=== PATIENT | male | born 1990 | race Caucasian/White ===

== ENCOUNTER 2017-09-22 20:55 | Emergency (ER) | payer SELFPAY ==
[~2017-09-22 20:55] MED LIST: ACET500T68 PO; AZIT-17 PO; BENZ100C4 PO; CEPH-13 PO; DICL-195 PO; IBU800 PO; IBUP800T37 PO; LIDO15SO2 BC; LOR5/325 PO; ONDA4TAB PO; OXYC-865 PO; PROM-110 PO; SULF-198 PO; TRAM-420 PO
[2017-09-22 20:59] VITALS: BP 133/84
--- NOTE | 2017-09-22 21:10 | ER Report ---
History and Physical Time Seen By MD: 21:10 Hx. of Stated Complaint: FISH HOOK IN RIGHT FOREARM FOR 1.5 HRS HPI/ROS CHIEF COMPLAINT: Angustura in forearm HISTORY OF PRESENT ILLNESS: This is a 26-year-old male who presents to the emergency department for a fishhook in the right arm. Patient states that about 1-2 hours ago he was fishing, went to cast and caught himself in the right forearm with a fishhook. Patient states he did try to remove the fishhook however was unsuccessful decided to come in for further evaluation and fishhook removal. Allergies: Coded Allergies: Penicillins (Verified Allergy, Mild, NAUSEA/VOMITING, 09/22/17) amoxicillin (Verified Allergy, Mild, NAUSEA/VOMITING, 09/22/17) sulfamethoxazole (Verified Allergy, Unknown, 09/22/17) trimethoprim (Verified Allergy, Unknown, 09/22/17) Home Meds Active Scripts Cephalexin 500 Mg Tab (KEFLEX 500 MG TAB) 500 Mg Tablet, 500 MG PO BID for 7 Days, #13 TAB 0 Refills Prov:FCO BONE MANAGER EPIC-BC 09/22/17 Past Medical/Surgical History Patient has a past medical and surgical history of vision problems, wears glasses. Reviewed Nurses Notes: Yes Hx Smoking: No (CHEWS 1 CAN/DAILY) Smoking Status: Former Smoker Hx Alcohol Use: No Constitutional Vital Sign - Last 24 Hours 09/22/17 20:59 Temp 97.9 Pulse 76 Resp 16 B/P (MAP) 133/84 Pulse Ox 98 O2 Delivery Room Air Physical Exam General appearance: Alert no distress. Respiratory: Chest is non tender, lungs are clear to auscultation. Cardiac: Regular rate and rhythm Integumentary: Angustura to the right medial forearm. No active bleeding. No erythema. DIFFERENTIAL DIAGNOSIS: After history and physical exam differential diagnosis was considered for fishhook to right forearm. Medical Decision Making ED Course/Re-evaluation ED Course The patient was admitted to room. A history of physical were obtained. The area surrounding the fishhook was anesthetized with 1% lidocaine with epi. And tolerated well. The fish hook was cut, the eye was then pushed through the skin , patient tolerated well. There were no complications. The wound was irrigated and dressed. Patient was given one 500 mg dose of Keflex in the emergency department. Patient's prescription was sent to his pharmacy. The patient does not have a true allergy to Penicillin or Amoxicillin, nausea and vomiting. He was instructed to eat something when taking the medications. The patient's tetanus status was up-to-date. the patient had no other questions or concerns at this time and discharged home. Decision to Disposition Date: Sep 22, 2017 Decision to Disposition Time: 21:45 Depart Departure Latest Vital Signs Vital Signs Date Time Temp Pulse Resp B/P (MAP) Pulse Ox O2 Delivery O2 Flow Rate FiO2 09/22/17 20:59 97.9 76 16 133/84 98 Room Air Impression: Primary Impression: Fish hook in forearm Condition: Improved Disposition: HOME OR SELF-CARE New Scripts Cephalexin 500 Mg Tab (KEFLEX 500 MG TAB) 500 Mg Tablet 500 MG PO BID for 7 Days, #13 TAB 0 Refills Prov: FCO BONE-BENJIE 09/22/17 Patient Instructions: Acute Wound Care (ED) Additional Instructions: Drink plenty of fluids. Get plenty of rest. Take the antibiotics with food to avoid nausea and vomiting. Be sure to clean the wound and monitor for signs of infection, such as redness, swelling and pus. Follow up with your pcp as needed. Return to the ED for any other concerns. FCO BONE-BENJIE Sep 22, 2017 21:10
[2017-09-22] MEDS ORDERED: CEPH500T7 PO (21:43)
[2017-09-22] MEDS ORDERED: CEPHALEXIN MONO 500 MG CAP PO ONE (21:45)
== END 2017-09-22 21:55 | disposition home or self-care (01) ==
LOC: ER 21:02
DX: M79.5 Residual foreign body in soft tissue (principal)
CPT/HCPCS: 99283